=== PATIENT | male | born 1940 | race Caucasian/White ===

== ENCOUNTER 2017-03-25 18:23 | Emergency (ER) | payer OTHER, BC ==
[~2017-03-25] VITALS: Ht 172.7 cm; Wt 85.3 kg
[~2017-03-25 18:23] MED LIST: ADULT LOW DOSE81 M1 PO; AEROBID INHALER7 GM IH; AMITRIPTYLINE H25 MG PO; ASPIRIN81 M1 PO; ASPIRIN81 M2 PO; ATENOLOL100 MG PO; Aspirin PO; CALTRATE 600600 MG PO; CALTRATE600 MG PO; CELEBREX200 MG PO; CHELATED ZINC PO; CLOPIDOGREL75 MG PO; CYCLOBENZAPRINE10 MG PO; CYMBALTA20 MG PO; CYMBALTA30 MG PO; DAILY VITAMIN1 EAC8 PO; ELAVIL25 MG PO; Elavil PO; FLEXERIL10 MG PO; FLUNISOLIDE NS; FLUNISOLIDE25 ML BOTH NARES; FOLIC ACID0.8 MG PO; FOLIC ACID1 MG PO; Folic Acid PO; GLUCOSAMINE 1,1 EAC1 PO; GLUCOSAMINE-CH1 EAC7 PO; HYDROCHLOROTH12.5 M3 PO; Hydrodiuril,Oretic,E PO; LIPITOR40 MG PO; LO-DOSE ASPIRIN81 M1 PO; LOVAZA1 GM PO; MAG PO; MAGNESIUM200 MG PO; MICROZIDE12.5 M1 PO; MULTI-DAY VITA1 EACH PO; NAPROSYN250 MG PO; NAPROXEN250 MG PO; NITROSTAT0.4 MG SL; NIZORAL SHAMPO120 ML TP; PAPAYA ENZYME1 EAC2 PO; PAPAYA ENZYME1 EACH PO; PRILOSEC20 MG PO; PROBIOTIC1 EAC1 PO; PROBIOTIC1 EACH PO; SIMVASTATIN40 MG PO; TENORMIN100 MG PO; THIAMINE HCL100 MG PO; THIAMINE,VITAM100 MG PO; TUMS500 MG PO; Tenormin PO; Thiamine,Vitamin B1 PO; ULTRAM50 MG PO; VITAMIN B-1100 MG PO; VITAMIN B-1250 MG PO; VITAMIN D-32000 UNIT PO; XARELTO20 MG PO; Xanax PO; Xarelto PO; [UNRECOGNIZED DRUG - OTHER] PO; predniSONE PO
[2017-03-25 20:02] LABS: EOSINOPHIL COUNT 0.2 K/uL (0-0.3); HEMATOCRIT 49.3 % (38.0-50.0); IMMATURE GRANULOCYTE (%) 0.4 % (0.0-0.7); MCHC 34.3 G/DL (30.0-36.0); MCV 87.4 FL (86-99); MEAN PLAT.VOLUME 8.9 uM^3 (9.0-12.4); MONOCYTE (%) 7.8 % (3-12); MONOCYTE COUNT 0.6 K/uL (0-0.8); NEUTROPHIL (%) 63.9 % (45-76); PLATELET COUNT 186 K/uL (156-360); RBC DIS.WIDTH-CV 11.8 % (11.8-14.6); RED BLOOD COUNT 5.64 M/uL (4.00-5.50); WHITE BLOOD COUNT 7.9 K/uL (4.1-10.2)
[2017-03-25 20:08] LABS: INTER. NORMALIZED RATIO 1.2; PROTHROMBIN TIME 12.7 SEC (10.2-12.9)
[2017-03-25 20:10] LABS: PTT 30.4 SEC (25-37)
[2017-03-25 20:11] LABS: CHLORIDE 100 mEq/L (99-109); POTASSIUM 4.6 mEq/L (3.7-5.4); SODIUM 134 mEq/L (136-147)
[2017-03-25 20:13] LABS: GLUCOSE 106 mg/dL (70-99)
[2017-03-25 20:14] LABS: ANION GAP 9 MEQ/L (2-14)
[2017-03-25 20:15] LABS: TOTAL BILIRUBIN 1.4 mg/dL (0.0-1.0)
[2017-03-25 20:17] LABS: ALKALINE PHOSPHATASE 110 IU/L (3-129); GFR ESTIMATE (CALCULATED) > 59 mL/min/
[2017-03-25 20:18] LABS: DIRECT BILIRUBIN 0.5 mg/dL (0.0-0.3); UREA NITROGEN (BUN) 14 mg/dL (9-23)
[2017-03-25 20:23] LABS: TROP-I INTERPRETATION NEGATIVE; TROPONIN-I < 0.01 ng/mL (0.0-0.30)
[2017-03-25 20:23] LABS: ADD MIUA? NO; BILIRUBIN NEGATIVE; BLOOD NEGATIVE; COLOR YELLOW ((YELLOW)); GLUCOSE (STRIP) NEGATIVE; KETONES 5; LEUKOCYTES NEGATIVE; NITRITE NEGATIVE; PROTEIN (STRIP) NEGATIVE; SPECIFIC GRAVITY 1.012 (1.000-1.030); UCUL ADDED? NO; UROBILINOGEN 0.2 MG/DL (0.2-1.0)
[2017-03-25 21:56] VITALS: BP 118/68
== END 2017-03-25 21:57 | disposition home or self-care (01) ==
LOC: EME 18:23
PROVIDERS: Emergency Medicine
DX: S00.12XA Contusion of left eyelid and periocular area, initial encounter (principal); W18.39XA Other fall on same level, initial encounter; I48.0 Paroxysmal atrial fibrillation; Z79.01 Long term (current) use of anticoagulants; Z79.82 Long term (current) use of aspirin; R55 Syncope and collapse; I10 Essential (primary) hypertension; Z86.73 Personal history of transient ischemic attack (TIA), and cerebral infarction without residual deficits; Z95.1 Presence of aortocoronary bypass graft; Z87.891 Personal history of nicotine dependence
CPT/HCPCS: 70450; 70480; 80048; 80076; 81003; 83880; 84484; 85025; 85610; 85730; 93005; 99281; 99284

== ENCOUNTER 2017-03-29 10:39 | Observation (INO) | payer OTHER, BC ==
[~2017-03-29] VITALS: Ht 172.7 cm; Wt 86.5 kg
[2017-03-29 11:25] LABS: HEMATOCRIT 45.4 % (38.0-50.0); MCH 30.8 PG (29.0-34.0); MEAN PLAT.VOLUME 9.1 uM^3 (9.0-12.4); PLATELET COUNT 169 K/uL (156-360); RBC DIS.WIDTH-CV 11.6 % (11.8-14.6); RBC DIS.WIDTH-SD 36.9 % (39-53); RED BLOOD COUNT 5.16 M/uL (4.00-5.50)
[2017-03-29 11:37] LABS: CHLORIDE 99 mEq/L (99-109)
[2017-03-29 11:38] LABS: POTASSIUM 4.3 mEq/L (3.7-5.4); SODIUM 135 mEq/L (136-147)
[2017-03-29 11:39] LABS: GLUCOSE 175 mg/dL (70-99)
[2017-03-29 11:41] LABS: ANION GAP 9 MEQ/L (2-14)
[2017-03-29 11:43] LABS: GFR ESTIMATE (CALCULATED) > 59 mL/min/
[2017-03-29 11:44] LABS: UREA NITROGEN (BUN) 11 mg/dL (9-23)
[2017-03-29 11:50] LABS: TROP-I INTERPRETATION NEGATIVE; TROPONIN-I 0.01 ng/mL (0.0-0.30)
[2017-03-29] MEDS ORDERED: TYLENOL EXTRA500 MG PO (13:24)
[2017-03-29] MEDS ORDERED: VIOKACE 10,4401 EACH PO (13:24)
[2017-03-29] MEDS ORDERED: NEO-SYNEPHRINE-15 M1 BOTH NARES (13:25)
[2017-03-29] MEDS ORDERED: BIOTENE MOISTUR45 ML PO (13:25)
[2017-03-29] MEDS ORDERED: COUGH DROPS1 EACH MM (13:26)
[2017-03-29 15:01] VITALS: BP 155/71
[2017-03-29 17:09] LABS: TROP-I INTERPRETATION NEGATIVE; TROPONIN-I 0.01 ng/mL (0.0-0.30)
[2017-03-29 19:23] VITALS: BP 163/76
[2017-03-29 23:31] VITALS: BP 123/59
[2017-03-29 23:31] LABS: TROP-I INTERPRETATION NEGATIVE; TROPONIN-I 0.02 ng/mL (0.0-0.30)
[2017-03-30 03:18] VITALS: BP 128/60
[2017-03-30 07:57] VITALS: BP 178/79
[2017-03-30 11:35] VITALS: BP 171/75
== END 2017-03-30 15:01 | disposition home or self-care (01) ==
LOC: EME 10:39 → EDOF 12:33 → ENRESERV 12:51 → 5WEST 14:55
PROVIDERS: Internal Medicine
DX: R07.9 Chest pain, unspecified (principal); I48.0 Paroxysmal atrial fibrillation; I25.10 Atherosclerotic heart disease of native coronary artery without angina pectoris; I10 Essential (primary) hypertension; E78.5 Hyperlipidemia, unspecified; R55 Syncope and collapse; I34.0 Nonrheumatic mitral (valve) insufficiency; I36.1 Nonrheumatic tricuspid (valve) insufficiency; Z79.01 Long term (current) use of anticoagulants; Z98.890 Other specified postprocedural states; Z87.891 Personal history of nicotine dependence; Z86.73 Personal history of transient ischemic attack (TIA), and cerebral infarction without residual deficits; Z95.1 Presence of aortocoronary bypass graft; Z79.82 Long term (current) use of aspirin; K21.9 Gastro-esophageal reflux disease without esophagitis; Z86.711 Personal history of pulmonary embolism; Z86.718 Personal history of other venous thrombosis and embolism; Z91.040 Latex allergy status; Z90.49 Acquired absence of other specified parts of digestive tract; Z91.013 Allergy to seafood; Z91.041 Radiographic dye allergy status; Z88.7 Allergy status to serum and vaccine; Z80.0 Family history of malignant neoplasm of digestive organs; Z82.0 Family history of epilepsy and other diseases of the nervous system
CPT/HCPCS: 71020; 80048; 84484; 85027; 93005; 93306; 93880; 99281; 99285; G0378

== ENCOUNTER 2017-04-14 01:57 | Observation (INO) | payer OTHER, BC ==
[~2017-04-14] VITALS: Ht 172.7 cm; Wt 84.1 kg
[~2017-04-14 01:57] MED LIST changes: +BIOTENE MOISTUR45 ML PO; +COUGH DROPS1 EACH MM; +NEO-SYNEPHRINE-15 M1 BOTH NARES; +TYLENOL EXTRA500 MG PO; +VIOKACE 10,4401 EACH PO
[2017-04-14 02:29] LABS: EOSINOPHIL COUNT 0.3 K/uL (0-0.3); HEMATOCRIT 46.7 % (38.0-50.0); IMMATURE GRANULOCYTE (%) 0.3 % (0.0-0.7); INSTRUMENT ABS NEUTROPHIL CT 4.5 K/uL; LYMPHOCYTE COUNT 1.6 K/uL (1.0-2.8); MCHC 34.3 G/DL (30.0-36.0); MCV 87.6 FL (86-99); MEAN PLAT.VOLUME 9.2 uM^3 (9.0-12.4); MONOCYTE (%) 7.8 % (3-12); MONOCYTE COUNT 0.6 K/uL (0-0.8); NEUTROPHIL (%) 64.2 % (45-76); NEUTROPHIL COUNT 4.5 K/uL (1.8-6.4); PLATELET COUNT 161 K/uL (156-360); RBC DIS.WIDTH-CV 11.8 % (11.8-14.6); RBC DIS.WIDTH-SD 37.6 % (39-53); RED BLOOD COUNT 5.33 M/uL (4.00-5.50)
[2017-04-14 02:34] LABS: INTER. NORMALIZED RATIO 1.5; PROTHROMBIN TIME 17.5 SEC (10.2-12.9)
[2017-04-14 02:37] LABS: PTT 32.8 SEC (25-37)
[2017-04-14 02:45] LABS: CHLORIDE 100 mEq/L (99-109); POTASSIUM 3.9 mEq/L (3.7-5.4); SODIUM 134 mEq/L (136-147)
[2017-04-14 02:46] LABS: MAGNESIUM 1.9 mg/dL (1.3-2.7)
[2017-04-14 02:47] LABS: GLUCOSE 106 mg/dL (70-99)
[2017-04-14 02:48] LABS: ANION GAP 11 MEQ/L (2-14)
[2017-04-14 02:50] LABS: TROP-I INTERPRETATION NEGATIVE; TROPONIN-I < 0.01 ng/mL (0.0-0.30)
[2017-04-14 02:51] LABS: GFR ESTIMATE (CALCULATED) > 59 mL/min/
[2017-04-14 02:52] LABS: UREA NITROGEN (BUN) 16 mg/dL (9-23)
[2017-04-14] MEDS ORDERED: LEVSIN-SL0.125 MG SL (05:21)
[2017-04-14 05:55] VITALS: BP 187/93
[2017-04-14 07:38] LABS: METH RESISTANT S AUREUS PCR NEGATIVE (NEGATIVE); PROBE CHECK PASS; SPECIMEN PROCESSING CONTROL PASS
[2017-04-14 09:32] LABS: HDL CHOLESTEROL 47 MG/DL (Desirable>=40); LDL CHOLESTEROL 50 mg/dL (Desirable<100); NON-HDL CHOLESTEROL 61 mg/dL (Desirable<160); TOTAL CHOLESTEROL 108 mg/dL (Desirable<200); TRIGLYCERIDES 56 MG/DL (Normal: <150); TROP-I INTERPRETATION NEGATIVE; TROPONIN-I 0.01 ng/mL (0.0-0.30)
[2017-04-14 13:12] VITALS: BP 134/63
[2017-04-14] MEDS ORDERED: VALIUM5 MG PO (15:00)
[2017-04-14] MEDS ORDERED: REFRESH TEARS15 ML BOTH EYES (15:01)
[2017-04-14] MEDS ORDERED: MIRALAX17 GM PO (15:01)
[2017-04-14 15:21] LABS: TROP-I INTERPRETATION NEGATIVE; TROPONIN-I < 0.01 ng/mL (0.0-0.30)
== END 2017-04-14 16:40 | disposition home or self-care (01) ==
LOC: EME → EDBD 01:57 → EDOF 04:44 → ENRESERV 04:46 → 5WEST 05:53
PROVIDERS: Emergency Medicine; Hospitalist; Physician Assistant Medical
DX: R07.2 Precordial pain (principal); I25.10 Atherosclerotic heart disease of native coronary artery without angina pectoris; I48.0 Paroxysmal atrial fibrillation; K86.1 Other chronic pancreatitis; I10 Essential (primary) hypertension; E78.5 Hyperlipidemia, unspecified; I73.9 Peripheral vascular disease, unspecified; E04.1 Nontoxic single thyroid nodule; K21.9 Gastro-esophageal reflux disease without esophagitis; F32.9 Major depressive disorder, single episode, unspecified; F41.9 Anxiety disorder, unspecified; F10.20 Alcohol dependence, uncomplicated; Z95.1 Presence of aortocoronary bypass graft; Z86.73 Personal history of transient ischemic attack (TIA), and cerebral infarction without residual deficits; Z86.14 Personal history of Methicillin resistant Staphylococcus aureus infection; Z86.711 Personal history of pulmonary embolism; Z86.718 Personal history of other venous thrombosis and embolism; Z79.01 Long term (current) use of anticoagulants; Z79.82 Long term (current) use of aspirin; Z87.891 Personal history of nicotine dependence; Z87.442 Personal history of urinary calculi
CPT/HCPCS: 71010; 80048; 80061; 83735; 84484; 85025; 85610; 85730; 87641; 93005; 99281; 99285; G0378

== ENCOUNTER 2017-10-21 07:42 | Observation (INO) | payer OTHER, BC ==
[~2017-10-21] VITALS: Ht 175.3 cm; Wt 84.9 kg
[~2017-10-21 07:42] MED LIST changes: +AEROSPAN8.9 GM IH; -FLUNISOLIDE25 ML BOTH NARES; +LEVSIN-SL0.125 MG SL; +MIRALAX17 GM PO; +REFRESH TEARS15 ML BOTH EYES; +VALIUM5 MG PO
[2017-10-21 08:05] LABS: BASOPHIL (%) 0.4 % (0-1); EOSINOPHIL (%) 2.5 % (0-5); EOSINOPHIL COUNT 0.2 K/uL (0-0.3); HEMOGLOBIN 15.5 G/DL (12.5-16.6); IMMATURE GRANULOCYTE (%) 0.3 % (0.0-0.7); LYMPHOCYTE (%) 20.2 % (15-42); LYMPHOCYTE COUNT 1.5 K/uL (1.0-2.8); MCV 83.3 FL (86-99); MONOCYTE COUNT 0.6 K/uL (0-0.8); NEUTROPHIL (%) 68.6 % (45-76); PLATELET COUNT 169 K/uL (156-360); RBC DIS.WIDTH-SD 36.7 % (39-53); RED BLOOD COUNT 5.16 M/uL (4.00-5.50); WHITE BLOOD COUNT 7.3 K/uL (4.1-10.2)
[2017-10-21 08:10] LABS: INTER. NORMALIZED RATIO 1.6
[2017-10-21 08:13] LABS: PTT 34.3 SEC (25-37)
[2017-10-21 08:26] LABS: TROP-I INTERPRETATION NEGATIVE; TROPONIN-I 0.01 ng/mL (0.0-0.30)
[2017-10-21 08:47] LABS: CHLORIDE 98 MEQ/L (99-109); CREATININE 1.1 MG/DL (0.6-1.3); GFR ESTIMATE (CALCULATED) > 59 mL/min/ (58.99-99999); GLUCOSE 101 mg/dL (70-99); POTASSIUM 4.2 MEQ/L (3.7-5.4); SODIUM 132 MEQ/L (136-147); UREA NITROGEN (BUN) 18 mg/dL (9-23)
[2017-10-21] MEDS ORDERED: VITAMIN B-1100 MG PO (12:45)
[2017-10-21 13:38] LABS: HDL CHOLESTEROL 37 MG/DL (Desirable>=40); LDL CHOLESTEROL 47 mg/dL (Desirable<100); NON-HDL CHOLESTEROL 62 mg/dL (Desirable<160); TOTAL CHOLESTEROL 99 mg/dL (Desirable<200); TRIGLYCERIDES 75 MG/DL (Normal: <150)
[2017-10-21 14:20] LABS: HEMOGLOBIN A1c (GLYCOHEMOGLOB) 5.4 % (Below 5.7)
[2017-10-21 16:27] VITALS: BP 133/60
[2017-10-21 19:05] VITALS: BP 137/63
[2017-10-22 00:14] VITALS: BP 106/52
[2017-10-22 03:46] VITALS: BP 109/53
[2017-10-22 07:32] VITALS: BP 126/59
[2017-10-22 11:55] VITALS: BP 131/78
== END 2017-10-22 14:55 | disposition home or self-care (01) ==
LOC: EME → EDBD 07:42 → EME 07:42 → EDOF 12:48 → 4SOUTH 12:48 → ENRESERV 12:50 → 4SOUTH 16:18 → ENPENDDIS 10-22 → 4SOUTH 10-22 14:55
PROVIDERS: Emergency Medicine; Internal Medicine
DX: R51 Headache (principal); I48.0 Paroxysmal atrial fibrillation; I25.10 Atherosclerotic heart disease of native coronary artery without angina pectoris; I10 Essential (primary) hypertension; E78.5 Hyperlipidemia, unspecified; Z86.718 Personal history of other venous thrombosis and embolism; Z87.19 Personal history of other diseases of the digestive system; Z79.01 Long term (current) use of anticoagulants; Z79.82 Long term (current) use of aspirin; F41.9 Anxiety disorder, unspecified; Z86.73 Personal history of transient ischemic attack (TIA), and cerebral infarction without residual deficits; Z98.890 Other specified postprocedural states; Z90.49 Acquired absence of other specified parts of digestive tract; Z87.891 Personal history of nicotine dependence; Z82.0 Family history of epilepsy and other diseases of the nervous system; Z91.041 Radiographic dye allergy status
CPT/HCPCS: 70450; 70496; 70498; 70551; 71045; 80048; 80061; 82948; 83036; 84484; 85025; 85610; 85651; 85730; 93005; 99281; 99285; G0378; J1200; J2930; J3010